=== PATIENT | female | born 1990 | race Caucasian/White ===

== ENCOUNTER 2019-06-08 22:16 | Emergency (ER) | payer OTHER ==
[2019-06-08 22:27] VITALS: BP 138/87; PULSE 82; TEMP 98.2; BMI 25.4
--- NOTE | 2019-06-08 23:21 | PDOC ---
History of Present Illness - General Chief Complaint: Vaginal Bleeding Stated Complaint: VAGINAL BLEEDING/8WKS PREG. Time Seen by Provider: 06/08/19 22:56 History Source: Patient Exam Limitations: No Limitations - History of Present Illness Initial Comments: 28 yo F, 8wks (LMP 04/05/2019), p/w crampy abdominal pain and vaginal bleeding. Was seen at [facility] yesterday, had TVUS with no heartbeat and was told to follow up on Sunday. Here today due to more cramping pain and heavier bleeding. Understands that this is likely a miscarriage in process, but wants confirmation. 06/08/19 23:16 Past History - Past Medical History Allergies/Adverse Reactions: Allergies Allergy/AdvReac Type Severity Reaction Status Date / Time No Known Allergies Allergy Verified 06/08/19 22:27 COPD: No - Suicide/Smoking/Psychosocial Hx Smoking History: Never smoked Abd/GI Specific PMHX - Complaint Specific PMHX Colitis: No Diverticulitis: No Gall Bladder Disease: No GERD: No Hepatitis: No Irritable Bowel Synd (IBS): No Pancreatitis: No GI Ulcer Disease: No Review of Systems - Review of Systems Able to Perform ROS?: Yes Is the patient limited Portuguese proficient: No Constitutional: No: Chills, Fever HEENTM: No: Eye Pain, Recent change in vision, Double Vision, Tinnitus, Hearing Loss, Throat Pain, Mouth Pain, Difficulty Swallowing Respiratory: No: Cough, Orthopnea, Shortness of Breath Cardiac (ROS): No: Chest Pain, Irregular Heart Rate, Lightheadedness, Palpitations ABD/GI: No: Constipated, Diarrhea, Nausea, Vomiting : Yes: Other (vaginal bleeding). No: Burning, Dysuria, Discharge, Frequency Neurological: No: Headache, Numbness *Physical Exam - Vital Signs Last Vital Signs Temp Pulse Resp BP Pulse Ox 98.2 F 82 20 138/87 99 06/08/19 22:21 06/08/19 22:21 06/08/19 22:21 06/08/19 22:21 06/08/19 22:21 - Physical Exam General Appearance: Yes: Nourished, Appropriately Dressed. No: Apparent Distress HEENT: positive: EOMI, MICHELE, Normal ENT Inspection, Normal Voice, Pharynx Normal Neck: positive: Trachea midline, Supple. negative: Tender Respiratory/Chest: positive: Lungs Clear, Normal Breath Sounds. negative: Chest Tender, Respiratory Distress, Accessory Muscle Use Cardiovascular: positive: Regular Rhythm, Regular Rate Female Pelvic Exam: positive: normal external exam. negative: cervical os closed (os is open, dark red blood present, POC exiting the os) Gastrointestinal/Abdominal: positive: Normal Bowel Sounds, Tender (LLQ tenderness), Soft Musculoskeletal: positive: Normal Inspection. 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 06/08/19 23:20 Beta hcG 70380.4. 06/09/19 00:39 Blood type is A+, does not need RhoGam. 06/09/19 01:17 TVUS reviewed, 2.6 mm structure, no heart tones. Most consistent with demise. 06/09/19 01:31 *DC/Admit/Observation/Transfer Diagnosis at time of Disposition: Miscarriage - Discharge Dispostion Disposition: HOME Condition at time of disposition: Guarded Decision to Admit order: No - Referrals - Patient Instructions Additional Instructions: Ultrasound showed 2.6 mm rounded structure without heart tones. This is most likely to be demise. Please follow up with your OBGYN for further care. Return to the ED for worsened abdominal pain or bleeding. - Post Discharge Activity
--- NOTE | 2019-06-09 00:43 | PDOC ---
Documentation entered by Erika Weeks SCRIBE, acting as scribe for Zuleam Wilson MD. Zulema Wilson MD: This documentation has been prepared by the Micky zuñiga Brenda, SCRIBE, under my direction and personally reviewed by me in its entirety. I confirm that the documentation accurately reflects all work, treatment, procedures, and medical decision making performed by me. Attending Attestation - Resident Resident Name: Elly Peter - ED Attending Attestation I have performed the following: I have examined & evaluated the patient, The case was reviewed & discussed with the resident, I agree w/resident's findings & plan, Exceptions are as noted - HPI HPI: 06/09/19 00:31 The patient is a 28 year old female (), 8 weeks , with no significant PMH who presents to the emergency department with vaginal bleeding and abdominal cramping. The patient reports being seen at [facility] yesterday, where she had an ultrasound done and was told that there was no heartbeat, and was asked to follow up on Sunday (06/10/19)for a beta HCG count, she was warned that it was most likely demise. SHe notes coming in today, due to more clotting in blood and worsening of cramping. The patient denies chest pain, shortness of breath, headache and dizziness. Denies fever, chills, nausea, vomiting, diarrhea and constipation. Denies dysuria, frequency, urgency. Allergies: NKA Past surgical history: Not reported Social history: Denies any tobacco use, drug use oralcohol use. 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 - Physicial Exam PE: 06/09/19 00:31 wnwd Agree with resident's exam. 06/09/19 01:27 - Medical Decision Making 06/09/19 00:39 this 28 yo female p/w vaginal bleeding and documented . she was at [facility] 1 day ago and had an pelvic ultrasound that showed demise. Her LMP was March and her hop worker is in the [place] and she has been receiving [place] [facility] [place] US results pending imp threatened AB/ demise plan follow up with her hop worker for repeat bhcg ad pelvic US 06/09/19 01:27 ransvaginal ultrasound shows an elongated gestational sac in the endometrial canalof the lower uterine segment. There is a 2.6 mm rounded structure within the canal that could represent a pole No heartbeatwas detected. Suspected female gestation, demise. Ovaries grossly normal Type is A+ and patient will not need RhoGAM
== END 2019-06-09 01:49 | disposition home or self-care (01) ==
LOC: JER 22:16
DX: O03.9 Complete or unspecified spontaneous abortion without complication (principal)
CPT/HCPCS: 36415; 76817-TC; 84702; 86850; 86900; 86901; 99283-25